=== PATIENT | male | born 1955 | race Caucasian/White ===

== ENCOUNTER 2018-12-27 02:51 | Emergency (ER) | payer OTHER ==
[2018-12-27] MEDS ORDERED: NA CHLORIDE 0.9% 1,000 ML ONE (03:13)
[2018-12-27 03:46] LABS: Absolute Lymphocytes (CBC) 1.9 K/uL (0.7-4.9); Basophils % 0.5 % (0-1.3); Hematocrit 41.6 % (39.6-49.0); MPV 8.4 fL (7.6-11.3); RBC Red Blood Cell Count 4.53 M/uL (4.33-5.43)
[2018-12-27 03:52] LABS: Albumin 3.7 g/dL (3.4-5.0); Bilirubin Direct 0.2 mg/dL (0-0.2); Bilirubin Total 0.8 mg/dL (0.2-1.0); Protein, Total 6.8 g/dL (6.4-8.2)
--- NOTE | 2018-12-27 06:50 | ER ---
Nurse's Notes [facility] Name: Robbin Haines Age: 63 yrs Sex: Male : 1955 Arrival Date: 12/27/2018 Time: 02:55 Bed 13 Private MD: Raul Gregory B Diagnosis: Constipation, unspecified Presentation: 12/27 03:05 Presenting complaint: Patient states: last Tuesday I had a double hernia repair by dr liberty xie, yesterday around 1 pm pain sets in with fever pain score 10/10. I called dr. xie he said to take laxative if not successful do enema, but I did not do it. 03:05 Transition of care: patient was not received from another setting of care. Onset of rr5 symptoms was December 26, 2018 at 13:00. Risk Assessment: Do you want to hurt yourself or someone else? Patient reports no desire to harm self or others. Initial Sepsis Screen: Does the patient meet any 2 criteria? No. Patient's initial sepsis screen is negative. Does the patient have a suspected source of infection? No. Patient's initial sepsis screen is negative. Note fever max of 100.5 state in their record. Care prior to arrival: Medication(s) given: T3 last take 0115H and magnesium citrate. 03:05 Method Of Arrival: Ambulatory rr5 03:05 Acuity: TEMI 3 rr5 Historical: - Allergies: 03:05 Ciprofloxacin; rr5 - Home Meds: 03:05 rosuvastatin oral oral [Active]; candesartan 16 mg oral tab [Active]; aspirin 81 mg rr5 Oral chew 1 tab once daily [Active]; CoQ-10 100 mg oral cap [Active]; niacin 500 mg Oral tab [Active]; d-3 25 mcg [Active]; c supplement with radames tip 500 mg [Active]; B-12 1000mg [Active]; - PMHx: 03:05 Hyperlipidemia; Hypertension; rr5 - PSHx: 03:05 Hernia repair; rr5 - Immunization history:: Adult Immunizations up to date. - Social history:: Smoking status: Patient/guardian denies using tobacco, Patient/guardian denies using alcohol, street drugs. - Family history:: not pertinent. - Ebola Screening: : Patient negative for fever greater than or equal to 101.5 degrees Fahrenheit, and additional compatible Ebola Virus Disease symptoms Patient denies exposure to infectious person Patient denies travel to an Ebola-affected area in the 21 days before illness onset. Screenin:17 Abuse screen: Denies threats or abuse. Denies injuries from another. Nutritional rr5 screening: No deficits noted. Tuberculosis screening: No symptoms or risk factors identified. Fall Risk IV access (20 points). Total Coker Fall Scale indicates No Risk (0-24 pts). Assessment: 03:05 General: Appears in no apparent distress. uncomfortable, Behavior is calm, cooperative, rr5 appropriate for age. 03:05 Pain: Complains of pain in abdomen Pain does not radiate. Pain currently is 10 out of rr5 10 on a pain scale. Quality of pain is described as aching, Pain began 2-3 days ago. Is intermittent. Neuro: Level of Consciousness is awake, alert, obeys commands, Oriented to person, place, time, situation, Appropriate for age. Cardiovascular: Capillary refill < 3 seconds Patient's skin is warm and dry. Respiratory: Airway is patent Respiratory effort is even, unlabored, Respiratory pattern is regular, symmetrical. GI: Abdomen is round distended, Last BM was December 24, 2018. Bowel sounds present X 4 quads. Abdomen is tender to palpation X 4 quads. Guarding noted in right lower quadrant and left lower quadrant Reports lower abdominal pain, upper abdominal pain, bloating, constipation. : No signs and/or symptoms were reported regarding the genitourinary system. EENT: No signs and/or symptoms were reported regarding the EENT system. Derm: Skin is intact, Skin temperature is warm. Musculoskeletal: Circulation, motion, and sensation intact. Capillary refill < 3 seconds. 03:40 Reassessment: CT staff agustina informed oral contrast consumed. rr5 04:59 Reassessment: Patient appears in no apparent distress at this time. Patient and/or rr5 family updated on plan of care and expected duration. Pain level reassessed. Patient is alert, oriented x 3, equal unlabored respirations, skin warm/dry/pink. CT due at 0515H, resting on the bed on semi graham's position. 05:40 Reassessment: Patient appears in no apparent distress at this time. send for CT scan. rr5 05:50 Reassessment: Patient appears in no apparent distress at this time. back from CTscan. rr5 06:11 Reassessment: complaining of abdominal pain, ED provider aware.while waiting for the CT rr5 result. patient encourage to try if he can pass bowel, assisted going to restroom. 06:25 Reassessment: Patient appears in no apparent distress at this time. Patient is alert, rr5 oriented x 3, equal unlabored respirations, skin warm/dry/pink. able to pass stool feels relieved and its getting better as verbalized by patient. Patient states feeling better. Patient states symptoms have improved. 06:50 Reassessment: Patient appears in no apparent distress at this time. went to restroom rr5 positive BM for the seconds time. reassess by ED provider with order for discharge. 07:20 Reassessment: Patient appears in no apparent distress at this time. Patient is alert, rr5 oriented x 3, equal unlabored respirations, skin warm/dry/pink. discharge instruction given and explained without complaints made, verbalized understanding. feels better now as stated. Patient states feeling better. Patient states symptoms have improved. Vital Signs: 03:05 BP 139 / 95; Pulse 98; Resp 20; Temp 99.1; Pulse Ox 96% ; Weight 95.25 kg; Height 5 ft. rr5 8 in. (172.72 cm); Pain 10/10; 04:10 BP 129 / 87; Pulse 96; Resp 17; Pulse Ox 98% ; rr5 05:23 BP 132 / 82; Pulse 85; Resp 20; Pulse Ox 99% ; rr5 06:00 BP 146 / 78; Pulse 83; Resp 19; Pulse Ox 98% on R/A; rr5 07:10 BP 130 / 92; Pulse 80; Resp 17; Temp 97.7; Pulse Ox 99% ; rr5 03:05 Body Mass Index 31.93 (95.25 kg, 172.72 cm) rr5 ED Course: 02:55 Patient arrived in ED. do 02:56 Raul Gregory MD is Private Physician. do 02:56 Ty Fischer RN is Primary Nurse. rr5 02:59 Gary Friend MD is Attending Physician. rn 03:05 Arm band placed on right wrist. rr5 03:05 Patient has correct armband on for positive identification. Placed in gown. Bed in low rr5 position. Call light in reach. Side rails up X2. Pulse ox on. NIBP on. 03:12 Triage completed. rr5 03:15 Inserted saline lock: 20 gauge in right antecubital area, using aseptic technique. cc3 Blood collected. 05:44 CT completed. Pt tolerated procedure poorly. Patient moved to CT via stretcher. Patient moved back from CT. 05:56 CT Abd/Pelvis - PO and IV Contrast In Process Unspecified. EDMS 07:20 No provider procedures requiring assistance completed. IV discontinued, intact, rr5 bleeding controlled, No redness/swelling at site. Pressure dressing applied. Administered Medications: 03:15 Drug: NS 0.9% 1000 ml Route: IV; Rate: 1000 ml; Site: right antecubital; cc3 05:52 Follow up: Response: No adverse reaction; IV Status: Completed infusion; IV Intake: rr5 1000ml Intake: 05:52 IV: 1000ml; Total: 1000ml. rr5 Output: 05:00 Urine: 650ml (Voided); Total: 650ml. rr5 06:11 Stool: 1 (Formed Stool) ; Total: 650ml. rr5 06:50 Stool: 1 (Formed Stool) ; Total: 650ml. rr5 Outcome: 06:49 Discharge ordered by . rn 07:20 Discharged to home ambulatory, with family. rr5 07:20 Condition: stable 07:20 Discharge instructions given to patient, family, Instructed on discharge instructions, follow up and referral plans. Demonstrated understanding of instructions, follow-up care. 07:25 Patient left the ED. rr5 Signatures: Dispatcher [employer] EDNV Ashutosh Ness Gary Friend MD MD rn [place], Danielle do Cordel, Charlene 3 Ty Fischer RN RN rr5
--- NOTE | 2018-12-27 06:51 | EDPHYS ---
Physician Documentation [facility] Name: Robbin Haines Age: 63 yrs Sex: Male : 1955 Arrival Date: 12/27/2018 Time: 02:55 Bed 13 Private MD: Raul Gregory B ED Physician Gary Friend HPI: 12/27 03:07 This 63 yrs old Male presents to ER via Unassigned with complaints of rn Constipation, Abdominal Pain, Fever. 03:08 The patient presents with abdominal pain in the lower abdomen. Onset: The rn symptoms/episode began/occurred yesterday. The symptoms do not radiate. Associated signs and symptoms: Pertinent positives: constipation, Pertinent negatives: blood in stools, diarrhea. Modifying factors: The symptoms are alleviated by nothing, the symptoms are aggravated by nothing. Severity of pain: At its worst the pain was mild in the emergency department the pain is unchanged. The patient has not experienced similar symptoms in the past. Reports had bilateral hernia repair 2 days ago, called Dr. Freitas because was having lower abd pain and constipation, told to take magnesium citrate and enema, did not use enema. Has been taking tylenol with codeine every 6 hours. . Historical: - Allergies: 03:05 Ciprofloxacin; rr5 - Home Meds: 03:05 rosuvastatin oral oral [Active]; candesartan 16 mg oral tab [Active]; aspirin 81 mg rr5 Oral chew 1 tab once daily [Active]; CoQ-10 100 mg oral cap [Active]; niacin 500 mg Oral tab [Active]; d-3 25 mcg [Active]; c supplement with radames tip 500 mg [Active]; B-12 1000mg [Active]; - PMHx: 03:05 Hyperlipidemia; Hypertension; rr5 - PSHx: 03:05 Hernia repair; rr5 - Immunization history:: Adult Immunizations up to date. - Social history:: Smoking status: Patient/guardian denies using tobacco, Patient/guardian denies using alcohol, street drugs. - Family history:: not pertinent. - Ebola Screening: : Patient negative for fever greater than or equal to 101.5 degrees Fahrenheit, and additional compatible Ebola Virus Disease symptoms Patient denies exposure to infectious person Patient denies travel to an Ebola-affected area in the 21 days before illness onset. ROS: 03:08 Constitutional: Negative for chills, and weight loss, Eyes: Negative for injury, pain, rn redness, and discharge, Neck: Negative for injury, pain, and swelling, Cardiovascular: Negative for chest pain, palpitations, and edema, Respiratory: Negative for shortness of breath, cough, wheezing, and pleuritic chest pain, Abdomen/GI: Negative for nausea, vomiting, diarrhea MS/Extremity: Negative for injury and deformity, Skin: Negative for injury, rash, and discoloration, Neuro: Negative for headache, weakness, numbness, tingling, and seizure. Exam: 03:08 Constitutional: This is a well developed, well nourished patient who is awake, alert, rn and in no acute distress. Head/Face: Normocephalic, atraumatic. ENT: MMM Cardiovascular: Regular rate and rhythm. No pulse deficits. Respiratory: No increased work of breathing, no retractions or nasal flaring. Abdomen/GI: soft, mild distension and some tenderness around surgical sites MS/ Extremity: Pulses equal, no cyanosis. Neurovascular intact. Full, normal range of motion. Equal circumference. Neuro: Awake and alert, GCS 15, oriented to person, place, time, and situation. Cranial nerves II-XII grossly intact. Motor strength 5/5 in all extremities. Sensory grossly intact. Cerebellar exam normal. Vital Signs: 03:05 BP 139 / 95; Pulse 98; Resp 20; Temp 99.1; Pulse Ox 96% ; Weight 95.25 kg; Height 5 ft. rr5 8 in. (172.72 cm); Pain 10/10; 04:10 BP 129 / 87; Pulse 96; Resp 17; Pulse Ox 98% ; rr5 05:23 BP 132 / 82; Pulse 85; Resp 20; Pulse Ox 99% ; rr5 06:00 BP 146 / 78; Pulse 83; Resp 19; Pulse Ox 98% on R/A; rr5 07:10 BP 130 / 92; Pulse 80; Resp 17; Temp 97.7; Pulse Ox 99% ; rr5 03:05 Body Mass Index 31.93 (95.25 kg, 172.72 cm) rr5 MDM: 02:59 Patient medically screened. rn 06:47 Differential diagnosis: non-specific abd pain, constipation. Data reviewed: vital rn signs, nurses notes, lab test result(s), radiologic studies, CT scan, and as a result, I will discharge patient. Counseling: I had a detailed discussion with the patient and/or guardian regarding: the historical points, exam findings, and any diagnostic results supporting the discharge/admit diagnosis, lab results, radiology results, the need for outpatient follow up, to return to the emergency department if symptoms worsen or persist or if there are any questions or concerns that arise at home. Response to treatment: the patient's symptoms have markedly improved after treatment, and as a result, I will discharge patient. ED course: CT shows post-operative findings without complication, + constipation, no obstruction. Symptoms improved and had bowel movement after return from CT. Drinking water. Will dc home.. 12/27 03:07 Order name: Basic Metabolic Panel; Complete Time: : 12/27 03:07 Order name: CBC with Diff; Complete Time: 12/27 03:07 Order name: Creatinine for Radiology; Complete Time: : 12/27 03:07 Order name: Hepatic Function; Complete Time: 12/27 03:07 Order name: Lipase; Complete Time: : 12/27 03:07 Order name: CT Abd/Pelvis - PO and IV Contrast rn 12/27 03:07 Order name: IV Saline Lock; Complete Time: 03: rn 12/27 03:07 Order name: Labs collected and sent; Complete Time: 03: rn Administered Medications: 03:15 Drug: NS 0.9% 1000 ml Route: IV; Rate: 1000 ml; Site: right antecubital; cc3 05:52 Follow up: Response: No adverse reaction; IV Status: Completed infusion; IV Intake: rr5 1000ml Disposition: 12/27/18 06:49 Discharged to Home. Impression: Constipation, unspecified. - Condition is Stable. - Discharge Instructions: Constipation, Adult. - Medication Reconciliation Form, Thank You Letter, Antibiotic Education, Prescription Opioid Use form. - Follow up: Private Physician; When: As needed; Reason: Recheck today's complaints, Re-evaluation by your physician. - Problem is new. - Symptoms have improved. Signatures: Dispatcher [employer] EDMS Gary Friend MD MD rn Cordel, Charlene cc3 Ty Fischer RN RN rr5 Corrections: (The following items were deleted from the chart) 07:25 06:49 12/27/2018 06:49 Discharged to Home. Impression: Constipation, unspecified. rr5 Condition is Stable. Forms are Medication Reconciliation Form, Thank You Letter, Antibiotic Education, Prescription Opioid Use. Follow up: Private Physician; When: As needed; Reason: Recheck today's complaints, Re-evaluation by your physician. Problem is new. Symptoms have improved. rn
[2018-12-27 07:40] VITALS: BP 130/92; TEMP 97.7; O2SAT 99
--- NOTE | 2018-12-27 10:14 | RAD REPORT ---
EXAM DESCRIPTION: CT Abdomen and Pelvis With Intravenous Contrast CLINICAL HISTORY: The patient is 63 years old and is Male; 2 days s/p bilateral justus;Abdominal diste ntion;Constipation TECHNIQUE: Axial computed tomography images of the abdomen and pelvis with intravenous contrast. S agittal and coronal reformatted images were created and reviewed. This CT exam was performed using one or more of the following dose reduction techniques: automated exposure control, adjustment of t he mA and/or kV according to patient size, and/or use of iterative reconstruction technique. COMPARISON: No relevant prior studies available. FINDINGS: LUNG BASES: Minimal dependent densities in the lung bases are present. ABDOMEN: LIVER: The liver is enlarged and fatty. GALLBLADDER AND BILE DUCTS: The gallbladder is distended. PANCREAS: Fatty infiltration of the pancreas is noted. SPLEEN: Unremarkable. ADRENALS: Unremarkable. No mass. KIDNEYS AND URETERS: Bilateral nonspecific perinephric stranding is noted. There is no hydroneph rosis or hydroureter of either kidney. No obstructing renal or ureteral calculus is seen. STOMACH AND BOWEL: The stomach is decompressed. Oral contrast is noted throughout majority the s mall bowel which is normal in caliber. A moderate amount stool is present throughout the colon. There is no mucosal thickening or evidence of bowel obstruction. PELVIS: APPENDIX: The appendix is normal in caliber without surrounding inflammation. BLADDER: The bladder is well distended. REPRODUCTIVE: Unremarkable as visualized. ABDOMEN and PELVIS: INTRAPERITONEAL SPACE: Unremarkable. No free air. No significant fluid collection. BONES/JOINTS: No acute fracture. SOFT TISSUES: Subcutaneous air, fluid and edema in the region of bilateral inguinal canals is no art consistent with patient's history of recent bilateral hernia repair. VASCULATURE: Unremarkable. No abdominal aortic aneurysm. LYMPH NODES: Unremarkable. No enlarged lymph nodes. IMPRESSION: 1. Subcutaneous air, fluid and edema in the region of bilateral inguinal canals is not ed consistent with patient's history of recent bilateral hernia repair. 2. Moderate stool burden without obstruction. Electronically signed by: Jeimy Vera MD 12/27/2018 6:23 AM CDT Due to temporary technical issues with the PACS/Fluency reporting system, reports are being signed by the in house radiologist as a courtesy to ensure prompt reporting. The interpreting radiologist is f ully responsible for the content of the report.
== END 2018-12-27 07:25 | disposition home or self-care (01) ==
LOC: ER 02:51
DX: K59.00 Constipation, unspecified (principal); I10 Essential (primary) hypertension; E78.5 Hyperlipidemia, unspecified; Z79.82 Long term (current) use of aspirin; Z88.3 Allergy status to other anti-infective agents
CPT/HCPCS: 85025; 80048; 36415; 80076; 83690; 74177; Q9967; J7030

== ENCOUNTER 2023-01-24 07:00 | Day surgery (SDC) | payer OTHER ==
--- NOTE | 2023-01-20 12:31 | RAD REPORT ---
EXAM DESCRIPTION: Hilda Hurtado (2 Views)01/20/2023 12:26 pm CLINICAL HISTORY: Preop for gallbladder surgery. Hypertension COMPARISON: 2019 FINDINGS: The lungs appear clear of acute infiltrate. The heart is normal size IMPRESSION: No acute abnormalities displayed
[2023-01-20 12:42] LABS: Absolute Lymphocytes (CBC) 2.4 K/uL (0.7-4.9); Hematocrit 42.4 % (39.6-49.0); Lymphocytes % 32.9 % (15.3-44.8); MCV 91.9 fL (80-100); MPV 7.7 fL (7.6-11.3); Platelets 265 thou/uL (152-406); RBC Red Blood Cell Count 4.61 M/uL (4.33-5.43)
[2023-01-20 12:56] LABS: Albumin 3.7 g/dL (3.4-5.0); Bilirubin Direct 0.2 mg/dL (0-0.2); Bilirubin Indirect, Calculated 0.6 mg/dL (0.2-0.8); Bilirubin Total 0.8 mg/dL (0.2-1.0); Protein, Total 7.2 g/dL (6.4-8.2)
--- NOTE | 2023-01-20 13:35 | EKG ---
Test Date: 2023-01-20 Test Time: 12:39:04 Software Test Specialist: ALON MEASUREMENT RESULTS: Intervals: Rate: 56 WA: 182 QRSD: 94 QT: 416 QTc: 401 [place]: P: 57 WA: 182 QRS: -8 T: 54 INTERPRETIVE STATEMENTS: Sinus bradycardia Otherwise normal ECG Compared to ECG 10/26/2007 08:27:21 Sinus rhythm no longer present Electronically Signed On 01-20-23 13:35:20 CDT by Esequiel Gandara
[2023-01-24] MEDS ORDERED: Ringers Lactate 1,000 ML IV ONE (07:34)
[2023-01-24] MEDS: CEFOXITIN SODIUM 1 GM/VIAL ONE ×2 (07:59→09:04)
[2023-01-24] MEDS ORDERED: FENTANYL CITR 100 MCG/2 ML ONE ×2 (08:06→09:25)
[2023-01-24] MEDS ORDERED: LIDOCAINE 2% MPF 5 ML VIAL ONE (08:06)
[2023-01-24] MEDS ORDERED: ROCURONIUM 50 MG/5 ML VIAL IV ONE (08:06)
[2023-01-24] MEDS ORDERED: propofoL 200 MG/20 ML VIAL IV ONE (08:06)
[2023-01-24] MEDS ORDERED: dexAMETHasone 4 MG/ML VIAL ONE (09:16)
[2023-01-24] MEDS ORDERED: ONDANSETRON 4 MG/2 ML VIAL ONE (09:16)
[2023-01-24] MEDS ORDERED: EPHEDRINE SULF 50 MG/ML VIAL ONE (09:18)
--- NOTE | 2023-01-24 09:37 | P.BOP ---
Preoperative diagnosis: acute cholecystitis, intractable RUQ, biliary dyskinesia Postoperative diagnosis: same plus umbilical hernia Primary procedure: 1. Laparoscopic cholecystectomy Secondary procedure: 2. open repair of umbilical hernia Estimated blood loss: <10cxc Specimen: gb, hernia sac Findings: inflammed GB, umbilical hernia with incarcerated omentum Anesthesia: General Complications: None Transferred to: Recovery Room Condition: Good
[2023-01-24] MEDS ORDERED: Mastisol Adhesive Liq ONE (09:38)
[2023-01-24] MEDS ORDERED: CODEINE 30MG/APAP 300MG TAB PO PRN (09:41)
[2023-01-24] MEDS ORDERED: KETOROLAC 30 MG/ML INJ ONE (09:46)
--- NOTE | 2023-01-24 13:00 | DS ---
Date of Discharge: 01/24/2023 Diagnoses: Acute cholecystitis, intractable right upper quadrant pain, biliary dyskinesia, umbilical hernia. Procedure: Laparoscopic cholecystectomy and open repair of umbilical hernia. Disposition: Home. Activity: As tolerated. No heavy lifting. Plan: Follow up in my office in 1 week. Call for appointment [phone]. Keep area dry for 48 hours, then may shower. Keep Steri-Strip intact. MAN/MORENA Voice ID: [id number] Report ID: [id number]
--- NOTE | 2023-01-24 13:00 | OP ---
Date of Procedure: 01/24/2023 Surgeon: René Webber MD Preoperative Diagnoses: Acute cholecystitis, intractable right upper quadrant abdominal pain, biliar y dyskinesia. Postoperative Diagnoses: Acute cholecystitis, intractable right upper quadrant abdominal pain, bilia ry dyskinesia plus umbilical hernia. Procedures: Laparoscopic cholecystectomy, open repair of umbilical hernia. Estimated Blood Loss: Less than 10 cc. Specimen: Hernia sac and gallbladder. Findings: Inflamed gallbladder, umbilical hernia with incarcerated omentum. Anesthesia: General plus local. Indication: This is a case of a 67-year-old patient who comes to us with abdominal pain. He changed his diet. He changed his social life. He is still having this pain, mainly postprandial. Patient had imaging done including a right upper quadrant ultrasound which shows biliary dyskinesia with dupl ication of symptoms and CCK injection. Patient also been seen by his primary doctor. He was recomme nded to see also a help desk specialist. After all that, patient came to us for cholecystectomy, lapar oscopic, possible open. He wants to use that option with benefit and alternatives and risks explaine d which include, but not limited to, infection, bleeding, damage to adjacent structures, anesthesia c omplication, choledocholithiasis, bile leak, pancreatitis, CA, and even . He also understood th is may not relieve any symptoms. He might need more than one surgical intervention. He understood, signed a consent. Description Of Procedure: Patient brought to the operating room, placed in supine position. Anesthe jenn was done without complication. Abdominal area was prepped and draped in a sterile fashion. Loca l anesthesia was applied followed by sharp incision of the skin in the periumbilical region. Immedia tely, we noticed the patient to have umbilical hernia. Omentum was trapped in that area, incarcerate d. We had opened the hernia sac, released adhesions of omentum to the hernia sac and the omentum was reduced after fully inspected and making sure it is viable. Also, making sure the omentum is not bl eeding. Hernia sac and content were removed. Fascial edges were cleaned. We placed Vicryl #1 insid e the fascia. Sarah trocar was carefully introduced. Pneumoperitoneum was obtained. I placed 3 mo re trocars, 5 mm each one of them, 1 in the epigastric area, 2 in the right upper quadrant using same technique which consisted of local anesthetic, sharp incision of the skin, and introduction of the t rocars under direct vision. This allowed me to put a grasper in the fundus of the gallbladder, anoth er grasper in the infundibulum, retracting the gallbladder in the inferolateral fashion exposing the triangle of Calot, obtaining critical view. Cystic duct and cystic artery were clearly isolated, mai ed circumferentially and a connection between those and the gallbladder were clearly identified. I p roceeded to ligate those by using at least 3 clips proximal, 1 clip distal, ligation in the middle. Same was done with the cystic artery. No bile leak. No bleeding. The gallbladder was removed from liver using Bovie cauterizer and removed from abdominal cavity using EndoCatch through the umbilical incision. At that moment, I proceeded to inspect the area. No bile leak. No bleeding. Clips were intact. At that moment, I proceeded to remove the trocars under direct vision, deflated pneumoperito neum, closed the fascia with #1 Vicryl, irrigated subcutaneous tissue, closed that with 3-0 chromic a nd the skin with 3-0 chromic in a subcuticular fashion and Steri-Strips on top. Sponge counts, instr ument counts correct. Patient tolerated the procedure well. Patient was sent to Recovery in stable condition. MAN/MORENA Voice ID: [id number] Report ID: [id number]
== END 2023-01-24 11:06 | disposition home or self-care (01) ==
LOC: OR 07:00
PROVIDERS: ATTEND Surgery
PROC: 0FT44ZZ Resection of Gallbladder, Percutaneous Endoscopic Approach (ICD-10-PCS; principal; 2023-01-24 08:30)
DX: K81.0 Acute cholecystitis (principal); K82.8 Other specified diseases of gallbladder; R10.11 Right upper quadrant pain; K42.9 Umbilical hernia without obstruction or gangrene
CPT/HCPCS: 47562; 93005; 85025; 80048; 36415; 80076; 88302; 88304; 83690; 71046; J2704; J1100; J2001; J3010 ×2; J0694; J2405; J7120